=== PATIENT | female | born 2000 | race African-American/Black ===

== ENCOUNTER 2022-03-20 11:43 | Outpatient (CLI) ==
[~2022-03-20] VITALS: Ht 160 cm; Wt 80.2 kg
[2022-03-20 12:21] VITALS: BP 123/86
[2022-03-20] MEDS ORDERED: PRENTAB9 PO (12:25)
[2022-03-20 12:59] VITALS: BP 123/82
== END 2022-03-20 13:10 | disposition home or self-care (01) ==
LOC: M LDO 11:43
PROVIDERS: ATTEND Advanced Practice Midwife
DX: O26.893 Other specified pregnancy related conditions, third trimester (principal); R10.2 Pelvic and perineal pain; Z3A.37 37 weeks gestation of pregnancy; O23.593 Infection of other part of genital tract in pregnancy, third trimester; B37.9 Candidiasis, unspecified
CPT/HCPCS: 59025; G0378; G0463

== ENCOUNTER 2022-04-03 04:26 | Inpatient (IN) | payer OTHER ==
[2022-04-03] VITALS (50 sets, daily range): BP systolic 110–190; BP diastolic 63–118
[~2022-04-03] VITALS: Ht 160 cm; Wt 78.3 kg
[~2022-04-03 04:26] MED LIST: PRENTAB9 PO
[2022-04-03] MEDS ORDERED: LACTATED RINGER'S 1000 ML IV STA (05:06)
[2022-04-03] MEDS ORDERED: OXYTOCIN INJ 10 UNITS/ML VIAL (J2590) IM PRN (05:10)
[2022-04-03] MEDS ORDERED: OXYTOCIN DRIP 30 UNITS in IV 1 EA IV SCH ×2 (05:10→12:10)
[2022-04-03] MEDS ORDERED: CARBOPROST TROMETHAMINE 250 MCG/ML AMP IM PRN (05:10)
[2022-04-03] MEDS ORDERED: OXYTOCIN DRIP 30 UNITS in IV 1 EA IV PRN ×6 (05:10)
[2022-04-03] MEDS ORDERED: LR 1,000 ML IV SCH ×2 (05:10)
[2022-04-03] MEDS ORDERED: METHYLERGONOVINE MALEATE 0.2 MG/ML VIAL (J2210) IM PRN (05:10)
[2022-04-03] MEDS ORDERED: LIDOCAINE 1% MDV 20ML VIAL INFIL PRN (05:10)
[2022-04-03] MEDS ORDERED: OXYTOCIN INJ 10 UNITS/ML VIAL (J2590) IV PRN (05:10)
[2022-04-03] MEDS ORDERED: TRANEXAMIC ACID INJection 1,000 MG in NS 100 ML IV PRN (05:10)
[2022-04-03] MEDS ORDERED: CALC500C15 PO (06:10)
[2022-04-03] MEDS ORDERED: HOME MED LIST COMPLETE! XX SCH (06:15)
[2022-04-03 06:34] LABS: HEMATOCRIT 37.2 % (36.0-47.0); HEMOGLOBIN 12.4 g/dl (12.0-15.5); MEAN CORPUSCULAR HEMOGLOBIN 31.4 pg (27.0-33.0); MEAN CORPUSCULAR HGB CONC 33.3 g/dl (32.0-36.5); MEAN CORPUSCULAR VOLUME 94.2 fl (80.0-96.0); PLATELET COUNT, AUTOMATED 304 10^3/uL (150-450); RED BLOOD COUNT 3.95 10^6/uL (4.00-5.40); WHITE BLOOD COUNT 7.9 10^3/uL (4.0-10.0)
[2022-04-03 07:06] LABS: ALT/SGPT 21 U/L (12-78); BILIRUBIN,TOTAL 0.4 MG/DL (0.2-1.0); CREATININE FOR GFR 0.74 MG/DL (0.55-1.30); LDH LACTATE DEHYDROGENASE 201 U/L (84-246); URIC ACID 6.4 MG/DL (2.6-6.0)
[2022-04-03] MEDS ORDERED: FENTANYL 2MCG/ML ROPIVACAINE 0.2% IN 0.9% NACL 100ML IVBAG As Ordered ONE (07:18)
[2022-04-03] MEDS ORDERED: LR 500 ML IV PRN (07:35)
[2022-04-03] MEDS ORDERED: FENTANYL/ROPIVACAINE/NACL BAG 100 ML EPIDURAL SCH (07:35)
[2022-04-03] MEDS ORDERED: ePHEDrine SULFATE 25 MG/5 ML(5MG/ML) SYRINGE IVP PRN (07:35)
[2022-04-03] MEDS ORDERED: EPIDURAL/PCA KEYS XX PRN (07:35)
[2022-04-03] MEDS ORDERED: diphenhydrAMINE 50MG/ML VIAL (J1200) IV PRN (07:35)
[2022-04-03] MEDS ORDERED: ONDANSETRON 4MG/2ML VIAL IV PRN (07:35)
[2022-04-03] MEDS ORDERED: NALOXONE INJ 0.4MG/1ML VIAL (J2310 PER 1MG) IV PRN (07:35)
[2022-04-03] MEDS ORDERED: METHYLERGONOVINE MALEATE 0.2 MG TAB PO PRN (12:10)
[2022-04-03] MEDS ORDERED: ACETAMINOPHEN 500 MG TAB PO PRN (12:10)
[2022-04-03] MEDS ORDERED: IBUPROFEN 600MG TAB PO PRN (12:10)
[2022-04-03] MEDS ORDERED: DIBUCAINE 1% OINTMENT 30GM TOP PRN (12:10)
[2022-04-03] MEDS: DOCUSATE SODIUM 100MG CAPSULE PO SCH ×2 (15:17→21:45)
[2022-04-03] MEDS: PRENATAL VITAMINS CHEWABLE TABLET PO SCH (15:17)
[2022-04-04 06:08] VITALS: BP 164/86
[2022-04-04 08:06] VITALS: BP_SYST 150; BP_SYST 167; BP_DIAS 101; BP_DIAS 88
[2022-04-04] MEDS: IBUPROFEN 800 MG TAB PO PRN (08:19)
[2022-04-04] MEDS: PRENATAL VITAMINS CHEWABLE TABLET PO SCH (08:19)
[2022-04-04] MEDS: DOCUSATE SODIUM 100MG CAPSULE PO SCH ×2 (08:19→20:33)
[2022-04-04] MEDS ORDERED: BOOSTRIX/ADACEL VACCINE (DIPHTH/PERTUSS/ACELL/TETANUS) 0.5ML SYR IM.IMMUN ONE (09:00)
[2022-04-04 10:00] VITALS: BP 140/80
[2022-04-04 14:00] VITALS: BP 135/85
[2022-04-04 18:00] VITALS: BP 138/98
[2022-04-04] MEDS: ACETAMINOPHEN TAB 650MG DOSE (2X325MG) PO PRN (20:50)
[2022-04-04 22:00] VITALS: BP 130/88
[2022-04-05] VITALS (29 sets, daily range): BP systolic 100–180; BP diastolic 50–110
[2022-04-05] MEDS: ACETAMINOPHEN TAB 650MG DOSE (2X325MG) PO PRN (03:33)
[2022-04-05] MEDS ORDERED: NIFEdipine 10 MG CAP As Ordered ONE (06:32)
[2022-04-05] MEDS ORDERED: NIFEdipine 10 MG CAP PO STA (06:38)
[2022-04-05] MEDS ORDERED: MAG Sulf (L&D) 4 GM/100 ML 4 GM in IV 1 EA IV ONE (06:40)
[2022-04-05] MEDS ORDERED: LR 1,000 ML IV SCH (06:40)
[2022-04-05] MEDS ORDERED: MAG Sulf (OBGYN) 20GM/500ML 20,000 MG in IV 1 EA IV SCH (06:40)
[2022-04-05 07:55] LABS: ALBUMIN 2.4 GM/DL (3.2-5.2); ALT/SGPT 27 U/L (12-78); BILIRUBIN,TOTAL 0.2 MG/DL (0.2-1.0); BLOOD UREA NITROGEN 7 MG/DL (7-18); CALCIUM LEVEL 9.3 MG/DL (8.5-10.1); CARBON DIOXIDE LEVEL 25 MEQ/L (21-32); CHLORIDE LEVEL 108 MEQ/L (98-107); CREATININE FOR GFR 0.69 MG/DL (0.55-1.30); GLUCOSE, FASTING 70 MG/DL (70-100); LDH LACTATE DEHYDROGENASE 263 U/L (84-246); POTASSIUM SERUM 4.1 MEQ/L (3.5-5.1); SODIUM LEVEL 142 MEQ/L (136-145); TOTAL PROTEIN 6.1 GM/DL (6.4-8.2)
[2022-04-05 08:32] LABS: HEMATOCRIT 36.6 % (36.0-47.0); HEMOGLOBIN 12.1 g/dl (12.0-15.5); MEAN CORPUSCULAR HEMOGLOBIN 31.7 pg (27.0-33.0); MEAN CORPUSCULAR HGB CONC 33.1 g/dl (32.0-36.5); MEAN CORPUSCULAR VOLUME 95.8 fl (80.0-96.0); PLATELET COUNT, AUTOMATED 285 10^3/uL (150-450); RED BLOOD COUNT 3.82 10^6/uL (4.00-5.40); WHITE BLOOD COUNT 10.7 10^3/uL (4.0-10.0)
[2022-04-05] MEDS ORDERED: NIFEdipine 30 MG XL TAB PO SCH ×2 (09:00)
[2022-04-05] MEDS: PRENATAL VITAMINS CHEWABLE TABLET PO SCH (10:01)
[2022-04-05] MEDS: DOCUSATE SODIUM 100MG CAPSULE PO SCH ×2 (10:01→20:03)
[2022-04-05] MEDS: IBUPROFEN 800 MG TAB PO PRN (13:16)
[2022-04-06] VITALS (8 sets, daily range): BP systolic 123–142; BP diastolic 90–98
[2022-04-06] MEDS: NIFEdipine 30 MG XL TAB PO SCH ×2 (03:55→16:32)
[2022-04-06 06:46] LABS: HEMATOCRIT 36.6 % (36.0-47.0); HEMOGLOBIN 11.9 g/dl (12.0-15.5); MEAN CORPUSCULAR HGB CONC 32.5 g/dl (32.0-36.5); MEAN CORPUSCULAR VOLUME 95.3 fl (80.0-96.0); PLATELET COUNT, AUTOMATED 302 10^3/uL (150-450); RED BLOOD COUNT 3.84 10^6/uL (4.00-5.40); WHITE BLOOD COUNT 9.7 10^3/uL (4.0-10.0)
[2022-04-06] MEDS: PRENATAL VITAMINS CHEWABLE TABLET PO SCH (09:36)
[2022-04-06] MEDS: DOCUSATE SODIUM 100MG CAPSULE PO SCH ×2 (09:36→21:12)
[2022-04-06] MEDS ORDERED: MEASLES,MUMPS,RUBELLA VACCINE INJ (MMR-II) (90707) SC.IMMUN ONE (21:45)
[2022-04-07 02:10] VITALS: BP 139/96
[2022-04-07 03:58] VITALS: BP 140/98
[2022-04-07] MEDS: NIFEdipine 30 MG XL TAB PO SCH (03:58)
[2022-04-07 06:09] VITALS: BP 128/82
[2022-04-07] MEDS ORDERED: COLA100C5 PO (06:25)
[2022-04-07] MEDS ORDERED: PRENCHW PO (06:25)
[2022-04-07] MEDS ORDERED: IBUP-1022 PO (06:25)
[2022-04-07] MEDS ORDERED: NIFE1TAB52 PO (06:25)
[2022-04-07 07:39] LABS: HEMATOCRIT 36.3 % (36.0-47.0); HEMOGLOBIN 12.1 g/dl (12.0-15.5); MEAN CORPUSCULAR HEMOGLOBIN 31.8 pg (27.0-33.0); MEAN CORPUSCULAR HGB CONC 33.3 g/dl (32.0-36.5); MEAN CORPUSCULAR VOLUME 95.3 fl (80.0-96.0); PLATELET COUNT, AUTOMATED 336 10^3/uL (150-450); RED BLOOD COUNT 3.81 10^6/uL (4.00-5.40); WHITE BLOOD COUNT 10.2 10^3/uL (4.0-10.0)
[2022-04-07] MEDS: DOCUSATE SODIUM 100MG CAPSULE PO SCH (07:46)
[2022-04-07] MEDS: PRENATAL VITAMINS CHEWABLE TABLET PO SCH (07:46)
== END 2022-04-07 08:50 | disposition home or self-care (01) | DRG 807 ==
LOC: M LDO 04:26 → M LDI 05:29 → M OBS 16:02
PROVIDERS: ADMIT Obstetrics & Gynecology; ATTEND Obstetrics & Gynecology
PROC: 10E0XZZ Delivery of Products of Conception, External Approach (ICD-10-PCS; principal; 2022-04-03)
PROC: 3E033VJ Introduction of Other Hormone into Peripheral Vein, Percutaneous Approach (ICD-10-PCS; 2022-04-03)
PROC: 0UQMXZZ Repair Vulva, External Approach (ICD-10-PCS; 2022-04-03)
PROC: 0HQ9XZZ Repair Perineum Skin, External Approach (ICD-10-PCS; 2022-04-03)
DX: O14.14 Severe pre-eclampsia complicating childbirth (principal); Z37.0 Single live birth; Z3A.39 39 weeks gestation of pregnancy; O69.81X0 Labor and delivery complicated by cord around neck, without compression, not applicable or unspecified; O71.82 Other specified trauma to perineum and vulva; O69.89X0 Labor and delivery complicated by other cord complications, not applicable or unspecified; O70.0 First degree perineal laceration during delivery

== ENCOUNTER 2022-08-30 19:15 | Emergency (ER) | payer OTHER ==
[~2022-08-30] VITALS: Ht 160 cm; Wt 81.7 kg
[~2022-08-30 19:15] MED LIST changes: +CALC500C15 PO; +COLA100C5 PO; +IBUP-1022 PO; +NIFE1TAB52 PO; +PRENCHW PO
[2022-08-30 21:27] LABS: VENOUS BASE EXCESS 0.7 (-2.0-2.0); VENOUS O2 SATURATION 64.7 % (60.0-80.0); VENOUS PARTIAL PRESSURE CO2 50.4 mmHg (38.0-50.0); VENOUS PARTIAL PRESSURE O2 34.4 mmHg (30.0-50.0); VENOUS PH 7.346 UNITS (7.330-7.430); VENOUS STANDARD HCO3 24.4 MEQ/L; VENOUS TOTAL CO2 28.5 MEQ/L (24.0-28.0)
[2022-08-30 21:29] LABS: BASO # 0.1 10^3/uL (0.0-0.2); BASO % 0.5 % (0.0-1.0); EOS # 0.3 10^3/uL (0.0-0.5); EOS % 3.5 % (0.0-3.0); LYMPH # 2.6 10^3/uL (1.5-5.0); LYMPH % 28.5 % (24.0-44.0); MEAN CORPUSCULAR HEMOGLOBIN 29.6 pg (27.0-33.0); MEAN CORPUSCULAR HGB CONC 31.4 g/dl (32.0-36.5); MEAN CORPUSCULAR VOLUME 94.3 fl (80.0-96.0); MONO # 0.6 10^3/uL (0.0-0.8); MONO % 6.1 % (2.0-8.0); NEUTROPHILS # 5.6 10^3/uL (1.5-8.5); PLATELET COUNT, AUTOMATED 400 10^3/uL (150-450); RED BLOOD COUNT 3.71 10^6/uL (4.00-5.40); WHITE BLOOD COUNT 9.1 10^3/uL (4.0-10.0)
[2022-08-30 21:45] LABS: D-DIMER QUANT 1026.85 ng/ml (<500)
[2022-08-30 22:10] LABS: ALBUMIN 3.8 GM/DL (3.2-5.2); ALT/SGPT 32 U/L (12-78); BILIRUBIN,DIRECT < 0.1 MG/DL (0.0-0.2); BILIRUBIN,TOTAL 0.2 MG/DL (0.2-1.0); BLOOD UREA NITROGEN 14 MG/DL (7-18); CALCIUM LEVEL 8.8 MG/DL (8.5-10.1); CARBON DIOXIDE LEVEL 27 MEQ/L (21-32); CHLORIDE LEVEL 105 MEQ/L (98-107); CK-MB VALUE MASS 3.3 NG/ML (<3.6); CREATININE FOR GFR 0.73 MG/DL (0.55-1.30); GLOMERULAR FILTRATION RATE > 60.0 (>60); GLUCOSE, FASTING 83 MG/DL (70-100); MB/CK RELATIVE INDEX 0.96 (< OR =4); NT-PRO BNP 147 PG/ML (<125); SODIUM LEVEL 140 MEQ/L (136-145); THYROXINE (T4) 8.9 UG/DL (4.5-12.0); TOTAL PROTEIN 7.6 GM/DL (6.4-8.2)
[2022-08-30 23:13] LABS: CK-MB VALUE MASS 2.8 NG/ML (<3.6); MB/CK RELATIVE INDEX 0.85 (< OR =4)
[2022-08-30] MEDS ORDERED: diphenhydrAMINE 50MG/ML VIAL IV STA (23:37)
[2022-08-30] MEDS ORDERED: methylPREDNISolone 125MG 2ML VIAL IV ONE (23:40)
[2022-08-30] MEDS ORDERED: ISOVUE-370 76% 100ML VIAL As Ordered ONE (23:41)
[2022-08-30 23:58] LABS: INR 0.82; PROTHROMBIN TIME 11.5 SECONDS (12.5-14.5)
[2022-08-30 23:59] LABS: PARTIAL THROMBOPLASTIN TIME 29.8 SECONDS (24.8-34.2)
[2022-08-31 00:06] LABS: C REACTIVE PROTEIN QUANTITATIV 1.04 MG/DL (0.00-0.30)
[2022-08-31 00:21] LABS: ERYTHROCYTE SEDIMENTATION RATE 32 mm/hr (0-20)
[2022-08-31 01:09] LABS: CK-MB VALUE MASS 3.2 NG/ML (<3.6); MB/CK RELATIVE INDEX 0.89 (< OR =4)
[2022-08-31 04:00] VITALS: BP 165/75
[2022-08-31] MEDS ORDERED: HOLTER MONITOR XX ×2 (04:00→04:07)
[2022-08-31] MEDS ORDERED: HOLTER MONITOR ×2 (14:07→14:08)
== END 2022-08-31 04:14 | disposition home or self-care (01) ==
LOC: M ED 19:15
DX: R06.00 Dyspnea, unspecified (principal); R74.8 Abnormal levels of other serum enzymes; O16.5 Unspecified maternal hypertension, complicating the puerperium; Z88.2 Allergy status to sulfonamides; Z91.013 Allergy to seafood; Z79.899 Other long term (current) drug therapy
CPT/HCPCS: 71275; 80048; 80076; 82550; 82553; 82803; 83605; 83880; 84436; 84443; 84484; 85025; 85379; 85610; 85652; 85730; 86140; 87486; 87581; 87633; 87798; 93005; 93041; 94760; 96374; 96375; 99285; J1200; J2930

== ENCOUNTER → 2022-08-31 | Outpatient (CLI) | payer OTHER ==
[~2022-08-31] MED LIST changes: +HOLTER MONITOR; +HOLTER MONITOR XX
== END ==
LOC: M RAD 13:23
PROVIDERS: ATTEND Emergency Medicine
DX: R06.02 Shortness of breath (principal); R42 Dizziness and giddiness

== ENCOUNTER 2022-09-03 20:31 | Emergency (ER) | payer OTHER ==
[~2022-09-03] VITALS: Ht 160 cm; Wt 80.9 kg
[2022-09-03] MEDS ORDERED: ACETAMINOPHEN 325 MG TAB PO ONE (20:45)
[2022-09-04 00:42] LABS: BASO # 0.1 10^3/uL (0.0-0.2); BASO % 0.5 % (0.0-1.0); EOS # 0.3 10^3/uL (0.0-0.5); EOS % 2.8 % (0.0-3.0); HEMATOCRIT 35.5 % (36.0-47.0); HEMOGLOBIN 11.2 g/dl (12.0-15.5); LYMPH # 1.5 10^3/uL (1.5-5.0); MEAN CORPUSCULAR HEMOGLOBIN 29.4 pg (27.0-33.0); MEAN CORPUSCULAR HGB CONC 31.5 g/dl (32.0-36.5); MEAN CORPUSCULAR VOLUME 93.2 fl (80.0-96.0); MONO # 0.7 10^3/uL (0.0-0.8); MONO % 6.5 % (2.0-8.0); NEUTROPHILS # 8.3 10^3/uL (1.5-8.5); NEUTROPHILS % 75.8 % (36.0-66.0); PLATELET COUNT, AUTOMATED 410 10^3/uL (150-450); RED BLOOD COUNT 3.81 10^6/uL (4.00-5.40); WHITE BLOOD COUNT 10.9 10^3/uL (4.0-10.0)
[2022-09-04 01:15] LABS: BLOOD UREA NITROGEN 15 MG/DL (7-18); CALCIUM LEVEL 9.3 MG/DL (8.5-10.1); CARBON DIOXIDE LEVEL 26 MEQ/L (21-32); CHLORIDE LEVEL 104 MEQ/L (98-107); CREATININE FOR GFR 0.83 MG/DL (0.55-1.30); GLOMERULAR FILTRATION RATE > 60.0 (>60); GLUCOSE, FASTING 83 MG/DL (70-100); HCG, SERUM QUANTITATIVE < 1.0 MIU/ML; POTASSIUM SERUM 4.3 MEQ/L (3.5-5.1); SODIUM LEVEL 137 MEQ/L (136-145)
[2022-09-04] MEDS ORDERED: ACETAMINOPHEN TAB 650MG DOSE (2X325MG) PO ONE (04:20)
[2022-09-04 09:16] VITALS: BP 128/81
== END 2022-09-04 09:29 | disposition home or self-care (01) ==
LOC: M ED 20:31
DX: J02.9 Acute pharyngitis, unspecified (principal); B34.9 Viral infection, unspecified; R11.2 Nausea with vomiting, unspecified; R50.9 Fever, unspecified; R51.9 Headache, unspecified; R00.2 Palpitations; Z88.2 Allergy status to sulfonamides; Z91.013 Allergy to seafood

== ENCOUNTER → 2023-01-16 | Outpatient (CLI) | payer OTHER | LOC: M WUC 13:36 | PROVIDERS: ATTEND Student in an Organized Health Care Education/Training Program | DX: M25.571 Pain in right ankle and joints of right foot (principal) ==

== ENCOUNTER 2023-01-29 23:09 | Emergency (ER) | payer OTHER ==
[~2023-01-29] VITALS: Ht 160 cm; Wt 79.1 kg
[2023-01-30 01:21] LABS: BASO # 0.1 10^3/uL (0.0-0.2); BASO % 0.9 % (0.0-1.0); EOS # 0.3 10^3/uL (0.0-0.5); EOS % 3.4 % (0.0-3.0); HEMATOCRIT 36.8 % (36.0-47.0); HEMOGLOBIN 11.6 g/dl (12.0-15.5); LYMPH # 3.5 10^3/uL (1.5-5.0); LYMPH % 38.3 % (24.0-44.0); MEAN CORPUSCULAR HEMOGLOBIN 29.4 pg (27.0-33.0); MEAN CORPUSCULAR HGB CONC 31.5 g/dl (32.0-36.5); MEAN CORPUSCULAR VOLUME 93.2 fl (80.0-96.0); MONO # 0.6 10^3/uL (0.0-0.8); MONO % 6.6 % (2.0-8.0); NEUTROPHILS # 4.7 10^3/uL (1.5-8.5); NEUTROPHILS % 50.5 % (36.0-66.0); PLATELET COUNT, AUTOMATED 414 10^3/uL (150-450); RED BLOOD COUNT 3.95 10^6/uL (4.00-5.40); WHITE BLOOD COUNT 9.2 10^3/uL (4.0-10.0)
[2023-01-30 01:30] LABS: LIPASE 63 U/L (12-53)
[2023-01-30 01:32] LABS: INR 0.84; PROTHROMBIN TIME 11.7 SECONDS (12.5-14.5)
[2023-01-30 01:33] LABS: ALKALINE PHOSPHATASE 83 U/L (46-116); ALT/SGPT 28 U/L (7.0-40); AST/SGOT 20 U/L (<34); BILIRUBIN,DIRECT < 0.1 MG/DL (<0.4); BILIRUBIN,TOTAL 0.2 MG/DL (0.3-1.2); BLOOD UREA NITROGEN 12 MG/DL (9-23); CALCIUM LEVEL 8.9 MG/DL (8.5-10.1); CARBON DIOXIDE LEVEL 28 MMOL/L (20-31); CHLORIDE LEVEL 106 MMOL/L (98-107); CREATININE FOR GFR 0.81 MG/DL (0.55-1.30); GLOMERULAR FILTRATION RATE > 60.0 (>60); GLUCOSE, FASTING 98 MG/DL (60-100); POTASSIUM SERUM 4.1 MMOL/L (3.5-5.1); SODIUM LEVEL 140 MMOL/L (136-145); TOTAL PROTEIN 7.4 G/DL (5.7-8.2)
[2023-01-30 01:35] LABS: HCG, SERUM QUALITATIVE NEGATIVE (NEGATIVE)
[2023-01-30] MEDS ORDERED: KETOROLAC 30 MG/ML 1ML VIAL IV ONE (07:10)
[2023-01-30 09:40] LABS: GC DNA AMPLIFICATION NEGATIVE (NEGATIVE)
[2023-01-30 10:53] VITALS: BP 142/65
== END 2023-01-30 10:59 | disposition home or self-care (01) ==
LOC: M ED 23:09
DX: R10.2 Pelvic and perineal pain (principal); Z88.2 Allergy status to sulfonamides; Z91.048 Other nonmedicinal substance allergy status; Z97.5 Presence of (intrauterine) contraceptive device; Z79.899 Other long term (current) drug therapy

== ENCOUNTER 2023-04-09 19:38 | Emergency (ER) | payer OTHER ==
[~2023-04-09] VITALS: Ht 160 cm; Wt 81.4 kg
[2023-04-09 19:39] VITALS: BP 154/92; TEMP 98.2; O2SAT 99
[2023-04-09 20:02] LABS: APPEARANCE, URINE HAZY (CLEAR); BACTERIA, URINE AUTO NEGATIVE (NEGATIVE); BILIRUBIN, URINE AUTO NEGATIVE (NEGATIVE); BLOOD, URINE BLOOD 2+ (NEGATIVE); COLOR, URINE YELLOW (YELLOW); GLUCOSE, URINE (UA) AUTO NEGATIVE (NEGATIVE); KETONE, URINE AUTO NEGATIVE (NEGATIVE); LEUKOCYTE ESTERASE, URINE AUTO 1+ (NEGATIVE); MUCUS, URINE SMALL (NEGATIVE); NITRITE, URINE AUTO NEGATIVE (NEGATIVE); PROTEIN, URINE AUTO 2+ mg/dL (NEGATIVE); RBC, URINE AUTO TNTC /HPF (0-3); SQUAMOUS EPITHELIAL CELL UR AU 2 /HPF (0-6); WBC, URINE AUTO 86 /HPF (0-3)
== END 2023-04-09 22:01 | disposition left against medical advice (07) ==
LOC: M ED 19:38
DX: R31.9 Hematuria, unspecified (principal); Z53.21 Procedure and treatment not carried out due to patient leaving prior to being seen by health care provider

== ENCOUNTER → 2023-09-02 | Outpatient (CLI) | payer OTHER ==
[~2023-09-02] MED LIST changes: +METHACHOLINE KIT INH ONE
== END ==
LOC: M CARPUL 13:53
PROVIDERS: ATTEND Physician Assistant
DX: R07.9 Chest pain, unspecified (principal)

== ENCOUNTER 2023-10-27 08:42 | Emergency (ER) | payer OTHER ==
[~2023-10-27] VITALS: Ht 160 cm; Wt 83.2 kg
[~2023-10-27 08:42] MED LIST changes: -METHACHOLINE KIT INH ONE
[2023-10-27] MEDS ORDERED: ACETAMINOPHEN 500 MG TAB PO ONE (09:05)
[2023-10-27 10:49] VITALS: BP 132/86; TEMP 98; O2SAT 100
== END 2023-10-27 11:37 | disposition home or self-care (01) ==
LOC: M ED 08:42 → EDBD 08:42 → M ED 11:37
DX: M25.572 Pain in left ankle and joints of left foot (principal); Y92.009 Unspecified place in unspecified non-institutional (private) residence as the place of occurrence of the external cause; Y09 Assault by unspecified means; Y99.8 Other external cause status; Y93.9 Activity, unspecified; Z88.1 Allergy status to other antibiotic agents; Z88.2 Allergy status to sulfonamides; Z91.041 Radiographic dye allergy status; Z91.013 Allergy to seafood; Z79.899 Other long term (current) drug therapy

== ENCOUNTER 2023-11-25 07:56 | Emergency (ER) | payer OTHER ==
[~2023-11-25] VITALS: Ht 160 cm; Wt 81.0 kg
[2023-11-25] MEDS ORDERED: SERT25TA21 (08:07)
[2023-11-25] MEDS ORDERED: TOPI25TA10 (08:07)
[2023-11-25] MEDS ORDERED: BISO5TAB14 (08:07)
[2023-11-25] MEDS ORDERED: CEPH500C (08:07)
[2023-11-25] MEDS ORDERED: ACET500C10 (08:07)
[2023-11-25 09:23] LABS: RSV AMPLIFICATION NEGATIVE (NEGATIVE)
[2023-11-25] MEDS ORDERED: FAMOTIDINE 20MG/2ML VIAL IVP ONE (11:25)
[2023-11-25] MEDS ORDERED: ACETAMINOPHEN TAB 650MG DOSE (2X325MG) PO ONE (11:25)
[2023-11-25] MEDS ORDERED: ONDANSETRON 4MG 2ML VIAL IV ONE (11:25)
[2023-11-25] MEDS ORDERED: NS 1,000 ML IV ONE (11:35)
[2023-11-25 11:41] LABS: HEMOGLOBIN 11.7 g/dl (12.0-15.5); MEAN CORPUSCULAR HGB CONC 31.6 g/dl (32.0-36.5); MEAN CORPUSCULAR VOLUME 91.8 fl (80.0-96.0); PLATELET COUNT, AUTOMATED 261 10^3/uL (150-450); RED BLOOD COUNT 4.03 10^6/uL (4.00-5.40)
[2023-11-25 12:05] LABS: AMYLASE 117 U/L (30-118); ATYPICAL LYMPH 7 % (0-5); BASOPHILS 2 % (0-1); EOSINOPHILS 3 % (0-3); LYMPHOCYTES 39 % (16-44); MONOCYTES 8 % (0-5); NEUTROPHILS 41 % (28-66); PLATELET ESTIMATE NORMAL (NORMAL); TOXIC VACUOLATION 1+
[2023-11-25 12:06] LABS: ALBUMIN 3.7 G/DL (3.2-5.2); ALKALINE PHOSPHATASE 134 U/L (46-116); ALT/SGPT 174 U/L (7.0-40); ANISOCYTOSIS 1+; AST/SGOT 131 U/L (<34); BILIRUBIN,DIRECT 0.2 MG/DL (<0.4); BILIRUBIN,TOTAL 0.7 MG/DL (0.3-1.2); BLOOD UREA NITROGEN 7 MG/DL (9-23); CALCIUM LEVEL 8.8 MG/DL (8.5-10.1); CARBON DIOXIDE LEVEL 27 MMOL/L (20-31); CHLORIDE LEVEL 104 MMOL/L (98-107); CREATININE FOR GFR 0.84 MG/DL (0.55-1.30); GLOMERULAR FILTRATION RATE > 60.0 (>60); GLUCOSE, FASTING 80 MG/DL (60-100); POTASSIUM SERUM 3.9 MMOL/L (3.5-5.1); SODIUM LEVEL 137 MMOL/L (136-145)
[2023-11-25 12:07] LABS: HCG, SERUM QUALITATIVE NEGATIVE (NEGATIVE)
[2023-11-25] MEDS ORDERED: diphenhydrAMINE 50MG/ML VIAL IV STA (12:11)
[2023-11-25] MEDS ORDERED: ISOVUE-370 76% 100ML VIAL As Ordered ONE (12:50)
[2023-11-25 13:05] LABS: LIPASE 67 U/L (12-53)
[2023-11-25] MEDS ORDERED: ONDA4TAB6 PO (21:06)
[2023-11-25 21:14] VITALS: BP 117/99; TEMP 98.2; O2SAT 100
== END 2023-11-25 21:29 | disposition home or self-care (01) ==
LOC: M ED 12:02
DX: K80.20 Calculus of gallbladder without cholecystitis without obstruction (principal); I10 Essential (primary) hypertension; J45.909 Unspecified asthma, uncomplicated; F41.9 Anxiety disorder, unspecified; F32.A Depression, unspecified; Z79.899 Other long term (current) drug therapy; Z88.2 Allergy status to sulfonamides; Z88.3 Allergy status to other anti-infective agents; Z88.8 Allergy status to other drugs, medicaments and biological substances; Z91.013 Allergy to seafood
CPT/HCPCS: 74177; 74181; 76705; 80048; 80076; 82150; 83690; 84703; 85025; 87631; 96361; 96374; 96375; 99284; J1200; J2405; Q9967; S0028

== ENCOUNTER 2025-03-14 00:39 | Emergency (ER) | payer OTHER ==
[~2025-03-14] VITALS: Ht 160 cm; Wt 87.9 kg
[~2025-03-14 00:39] MED LIST changes: +ACET500C10; +BISO5TAB14; +CEPH500C; +ONDA-282 PO; +SERT25TA21; +TOPI-256
[2025-03-14 03:54] VITALS: BP 137/60; O2SAT 99
[2025-03-14 05:37] VITALS: TEMP 98.2
[2025-03-14] MEDS: ONDANSETRON 4MG ORAL DISINTEGRATING TAB PO ONE (06:46)
== END 2025-03-14 07:42 | disposition home or self-care (01) ==
LOC: M ED 00:39
DX: O21.9 Vomiting of pregnancy, unspecified (principal); Z3A.00 Weeks of gestation of pregnancy not specified; O98.519 Other viral diseases complicating pregnancy, unspecified trimester; O16.9 Unspecified maternal hypertension, unspecified trimester; B34.8 Other viral infections of unspecified site; Z88.2 Allergy status to sulfonamides; Z88.8 Allergy status to other drugs, medicaments and biological substances; Z91.013 Allergy to seafood; Z79.2 Long term (current) use of antibiotics; Z79.899 Other long term (current) drug therapy; Z79.810 Long term (current) use of selective estrogen receptor modulators (SERMs)

== ENCOUNTER 2025-05-03 11:02 | Emergency (ER) | payer OTHER ==
[~2025-05-03] VITALS: Ht 160 cm; Wt 82.7 kg
[~2025-05-03 11:02] MED LIST changes: -BISO5TAB14; +BISO5TAB14 PO; +PROM25SU3 PR
[2025-05-03] MEDS ORDERED: D 50CAP2 PO (11:35)
[2025-05-03 12:16] LABS: BASO # 0.0 10^3/uL (0.0-0.2); BASO % 0.5 % (0.0-1.0); EOS # 0.1 10^3/uL (0.0-0.5); EOS % 1.2 % (0.0-3.0); LYMPH # 2.0 10^3/uL (1.5-5.0); LYMPH % 27.0 % (24.0-44.0); MONO # 0.4 10^3/uL (0.0-0.8); MONO % 5.7 % (2.0-8.0); NEUTROPHILS # 4.9 10^3/uL (1.5-8.5); NEUTROPHILS % 65.1 % (36.0-66.0); PLATELET COUNT, AUTOMATED 314 10^3/uL (150-450)
[2025-05-03 12:32] LABS: INR 0.9
[2025-05-03 12:53] LABS: CALCIUM LEVEL 8.9 MG/DL (8.5-10.1); CARBON DIOXIDE LEVEL 24 MMOL/L (20-31); CHLORIDE LEVEL 106 MMOL/L (98-107); CREATININE FOR GFR 0.65 MG/DL (0.55-1.30); GLOMERULAR FILTRATION RATE > 90.0 (>60); POTASSIUM SERUM 4.0 MMOL/L (3.5-5.1); SODIUM LEVEL 138 MMOL/L (136-145)
[2025-05-03] MEDS: MAG SULF 1GM/100ML (MAG RUN) 1 GM in IV 1 EA IV ONE (13:42)
[2025-05-03] MEDS: NS (Normal Saline) 0.9% 1,000 ML IV SCH (13:43)
[2025-05-03] MEDS ORDERED: ZOLO100T PO (14:48)
[2025-05-03] MEDS ORDERED: HOME MED LIST COMPLETE! XX SCH (14:50)
[2025-05-03] MEDS: PROMETHAZINE 25MG/ML 1ML VIAL IV ONE (20:41)
[2025-05-03 21:45] VITALS: BP 112/78; TEMP 98; O2SAT 96
== END 2025-05-03 22:09 | disposition home or self-care (01) ==
LOC: M ED 11:02
DX: O21.9 Vomiting of pregnancy, unspecified (principal); O99.351 Diseases of the nervous system complicating pregnancy, first trimester; Z3A.12 12 weeks gestation of pregnancy; Z79.810 Long term (current) use of selective estrogen receptor modulators (SERMs); Z79.899 Other long term (current) drug therapy
CPT/HCPCS: 70544; 70551; 76801; 80047; 80048; 85025; 85610; 85730; 86850; 86900; 86901; 93005; 93041; 93976; 94760; 96361; 96374; 96375; 99285; J2550; J3475

== ENCOUNTER 2025-07-10 18:28 | Emergency (ER) | payer OTHER ==
[~2025-07-10] VITALS: Ht 160 cm; Wt 83.2 kg
[~2025-07-10 18:28] MED LIST changes: +D 50CAP2 PO; -IBUP-1022 PO; +IBUP600T42 PO; +ZOLO100T PO
[2025-07-10 18:29] VITALS: BP 133/58; TEMP 97.8; O2SAT 100
[2025-07-10] MEDS ORDERED: ADDE15CA3 PO (19:02)
== END 2025-07-10 19:02 | disposition admitted as inpatient to this hospital (09) ==
LOC: M ED 18:28
DX: Z53.21 Procedure and treatment not carried out due to patient leaving prior to being seen by health care provider (principal)

== ENCOUNTER 2025-07-10 18:42 | Outpatient (CLI) | payer OTHER ==
[~2025-07-10] VITALS: Ht 157.5 cm; Wt 83.6 kg
[2025-07-10 18:57] VITALS: BP 117/74
[2025-07-10] MEDS ORDERED: ADDE15CA3 PO (19:02)
[2025-07-10] MEDS ORDERED: HOME MED LIST COMPLETE! XX SCH (19:05)
[2025-07-10] MEDS: ACETAMINOPHEN 500 MG TAB PO ONE (19:35)
[2025-07-10] MEDS: LACTATED RINGER'S 1000 ML IV STA (19:45)
[2025-07-10] MEDS: ONDANSETRON 4MG 2ML VIAL IV PRN (19:48)
[2025-07-10 19:59] LABS: PLATELET COUNT, AUTOMATED 280 10^3/uL (150-450)
[2025-07-10 20:30] LABS: ALT/SGPT 20 U/L (7.0-40); AST/SGOT 21 U/L (<34); CALCIUM LEVEL 8.9 MG/DL (8.5-10.1); CARBON DIOXIDE LEVEL 24 MMOL/L (20-31); CHLORIDE LEVEL 103 MMOL/L (98-107); CREATININE FOR GFR 0.73 MG/DL (0.55-1.30); GLOMERULAR FILTRATION RATE > 90.0 (>60); POTASSIUM SERUM 3.9 MMOL/L (3.5-5.1); SODIUM LEVEL 136 MMOL/L (136-145)
[2025-07-10] MEDS: LR 1,000 ML IV SCH (20:38)
[2025-07-10 22:24] VITALS: BP 111/52
[2025-07-11 00:38] LABS: APPEARANCE, URINE CLEAR (CLEAR); BACTERIA, URINE AUTO NEGATIVE (NEGATIVE); BILIRUBIN, URINE AUTO NEGATIVE (NEGATIVE); BLOOD, URINE BLOOD NEGATIVE (NEGATIVE); GLUCOSE, URINE (UA) AUTO NEGATIVE (NEGATIVE); KETONE, URINE AUTO 2+ mg/dL (NEGATIVE); LEUKOCYTE ESTERASE, URINE AUTO NEGATIVE (NEGATIVE); MUCUS, URINE SMALL (NEGATIVE); NITRITE, URINE AUTO NEGATIVE (NEGATIVE); PROTEIN, URINE AUTO NEGATIVE (NEGATIVE); RBC, URINE AUTO 0 /HPF (0-3); SPECIFIC GRAVITY URINE AUTO 1.024 (1.002-1.035); SQUAMOUS EPITHELIAL CELL UR AU 3 /HPF (0-6); UROBILINOGEN, URINE AUTO 2.0 mg/dL (0.0-2.0); WBC, URINE AUTO 0 /HPF (0-3)
[2025-07-11 00:58] VITALS: BP 92/50
== END 2025-07-11 00:54 | disposition home or self-care (01) ==
LOC: M LDO 18:42
PROVIDERS: ATTEND Obstetrics & Gynecology
DX: O98.512 Other viral diseases complicating pregnancy, second trimester (principal); O26.22 Pregnancy care for patient with recurrent pregnancy loss, second trimester; O99.62 Diseases of the digestive system complicating childbirth; A08.4 Viral intestinal infection, unspecified; R00.0 Tachycardia, unspecified; K80.20 Calculus of gallbladder without cholecystitis without obstruction; Z91.013 Allergy to seafood; Z88.2 Allergy status to sulfonamides; Z88.8 Allergy status to other drugs, medicaments and biological substances; Z87.59 Personal history of other complications of pregnancy, childbirth and the puerperium; Z3A.22 22 weeks gestation of pregnancy
CPT/HCPCS: 59025; 80053; 81001; 82150; 83690; 85027; 96360; 96361; 96374; G0463; J2405

== ENCOUNTER 2025-07-16 22:03 | Emergency (ER) | payer OTHER ==
[~2025-07-16] VITALS: Ht 160 cm; Wt 102.0 kg
[~2025-07-16 22:03] MED LIST changes: +ADDE15CA3 PO
[2025-07-16 22:12] VITALS: BP 135/97; TEMP 98.5; O2SAT 97
[2025-07-16 22:52] LABS: PLATELET COUNT, AUTOMATED 320 10^3/uL (150-450)
[2025-07-16 23:14] LABS: AMPHETAMINES LEVEL URINE NEGATIVE (NEGATIVE); BARBITURATES URINE NEGATIVE (NEGATIVE); BENZODIAZEPINES URINE NEGATIVE (NEGATIVE); COCAINE METABOLITE URINE NEGATIVE (NEGATIVE); METHADONE URINE NEGATIVE (NEGATIVE); OPIATES URINE NEGATIVE (NEGATIVE)
[2025-07-16 23:15] LABS: CANNABINOIDS URINE NEGATIVE (NEGATIVE); PHENCYCLIDINE URINE NEGATIVE (NEGATIVE)
[2025-07-16 23:18] LABS: ALT/SGPT 21 U/L (7.0-40); AST/SGOT 18 U/L (<34); CALCIUM LEVEL 9.1 MG/DL (8.5-10.1); CARBON DIOXIDE LEVEL 22 MMOL/L (20-31); CHLORIDE LEVEL 105 MMOL/L (98-107); CREATININE FOR GFR 0.55 MG/DL (0.55-1.30); GLOMERULAR FILTRATION RATE > 90.0 (>60); POTASSIUM SERUM 4.0 MMOL/L (3.5-5.1); SALICYLATE LEVEL < 3.0 MG/DL (<30); SODIUM LEVEL 136 MMOL/L (136-145)
[2025-07-16 23:20] LABS: ETHYL ALCOHOL (ETHANOL) < 0.003 % (0.000-0.010)
== END 2025-07-17 03:19 | disposition home or self-care (01) ==
LOC: M ED 22:03
DX: F32.A Depression, unspecified (principal); I10 Essential (primary) hypertension; Z88.2 Allergy status to sulfonamides; Z88.8 Allergy status to other drugs, medicaments and biological substances; Z91.013 Allergy to seafood; Z79.899 Other long term (current) drug therapy; Z79.810 Long term (current) use of selective estrogen receptor modulators (SERMs)

== ENCOUNTER 2025-08-06 21:53 | Emergency (ER) | payer OTHER ==
[~2025-08-06] VITALS: Ht 160 cm; Wt 84.9 kg
[2025-08-06 21:55] VITALS: BP 130/69; TEMP 98.2; O2SAT 100
== END 2025-08-06 23:37 | disposition left against medical advice (07) ==
LOC: M ED 21:53
DX: Z53.21 Procedure and treatment not carried out due to patient leaving prior to being seen by health care provider (principal)

== ENCOUNTER 2025-09-04 21:54 | Emergency (ER) | payer OTHER ==
[2025-09-04] MEDS ORDERED: GLYCCAP PO (23:12)
== END 2025-09-04 22:04 | disposition admitted as inpatient to this hospital (09) ==
LOC: M ED 21:54
DX: Z53.21 Procedure and treatment not carried out due to patient leaving prior to being seen by health care provider (principal)

== ENCOUNTER 2025-09-04 22:02 | Outpatient (CLI) | payer OTHER ==
[~2025-09-04] VITALS: Ht 157.5 cm; Wt 88.5 kg
[~2025-09-04 22:02] MED LIST changes: +CLOTRIMAZOLE 1% VAG CR 45 GM PV SCH
[2025-09-04 22:23] VITALS: BP 116/68
[2025-09-04] MEDS ORDERED: GLYCCAP PO (23:12)
[2025-09-04] MEDS ORDERED: CYCLOBENZAPRINE 5 MG TABLET PO ONE (23:15)
[2025-09-04] MEDS ORDERED: HOME MED LIST COMPLETE! XX SCH (23:15)
[2025-09-04] MEDS: ACETAMINOPHEN 500 MG TAB PO ONE (23:35)
== END 2025-09-05 | disposition home or self-care (01) ==
LOC: M LDO 22:02
PROVIDERS: ATTEND Student in an Organized Health Care Education/Training Program
DX: O26.893 Other specified pregnancy related conditions, third trimester (principal); O99.013 Anemia complicating pregnancy, third trimester; O10.013 Pre-existing essential hypertension complicating pregnancy, third trimester; M54.50 Low back pain, unspecified; D50.9 Iron deficiency anemia, unspecified; N89.8 Other specified noninflammatory disorders of vagina; Z3A.30 30 weeks gestation of pregnancy
CPT/HCPCS: 59025; G0463

== ENCOUNTER 2025-10-02 14:00 | Emergency (ER) | payer OTHER ==
[~2025-10-02] VITALS: Ht 157.5 cm; Wt 87.7 kg
[~2025-10-02 14:00] MED LIST changes: -CLOTRIMAZOLE 1% VAG CR 45 GM PV SCH; +GLYCCAP PO
[2025-10-02 16:27] VITALS: BP 139/83; TEMP 99.2; O2SAT 100
== END 2025-10-02 16:54 | disposition home or self-care (01) ==
LOC: M ED 14:00
DX: S93.401A Sprain of unspecified ligament of right ankle, initial encounter (principal); Y92.019 Unspecified place in single-family (private) house as the place of occurrence of the external cause; Y93.9 Activity, unspecified; Y99.9 Unspecified external cause status; W01.0XXA Fall on same level from slipping, tripping and stumbling without subsequent striking against object, initial encounter; Z33.1 Pregnant state, incidental; I10 Essential (primary) hypertension; G40.909 Epilepsy, unspecified, not intractable, without status epilepticus; F41.9 Anxiety disorder, unspecified; F32.A Depression, unspecified; Z88.2 Allergy status to sulfonamides; Z88.8 Allergy status to other drugs, medicaments and biological substances; Z91.013 Allergy to seafood; Z79.899 Other long term (current) drug therapy; Z79.810 Long term (current) use of selective estrogen receptor modulators (SERMs)